=== PATIENT | female | born 1935 | race Caucasian/White ===

== ENCOUNTER → 2020-05-19 | Day surgery (SDC) | payer OTHER ==
[~2020-05-19] MED LIST: ATORVASTATIN CA10 MG PO; CALCIUM D3; LEVOTHYROXINE50 MCG PO; LIDOCAINE HCL 2% LOCAL INJ 5 ML SDV VIAL INJ ONE; METOPROLOL TART50 MG PO; MULTIVITAMINS1 EAC7; PROPOFOL IV EMULSION 10 MG/ML 20 ML VIAL ONE; TYLENOL325 M2
[2020-05-19 10:15] VITALS: BP 164/92
--- NOTE | 2020-05-19 11:42 | Operative Report ---
DATE OF PROCEDURE: SURGEON: Aiden Fuchs MD NAME OF THE PROCEDURE: Colonoscopy. PREPROCEDURE DIAGNOSIS: The patient with history of adenomatous colon polyps and history of rectal bleeding, rule out colorectal neoplasm and for any bowel disease, perineal disease. DESCRIPTION OF PROCEDURE: After informed written consent, premedications with monitored anesthesia care, the videocolonoscope was introduced into the rectum and into the terminal ileum. Just water and minimal amount of CO2 were used for insufflation. Majority of insufflation was just done with water using a PD colonoscope. The terminal ileum, cecum, the ileocecal valve, ascending colon, transverse colon were normal. Descending sigmoid showed scattered diverticulosis, more so in the sigmoid, the sigmoid colon 25-30 cm from the anal verge. There were two polyps removed by cold snare, one of them was managed with an Endoclip. Internal and external hemorrhoids were noted. External hemorrhoids are fairly large. IMPRESSION: Internal-external hemorrhoids, diverticulosis, colon polyp. RECOMMENDATIONS: Local treatment for the hemorrhoids. Call for the office appointment in 2-3 weeks and if the hemorrhoidal bleeding persists, she will need a surgical evaluation. Aiden Fuchs MD SR/MODL /[id number]
== END | disposition home or self-care (01) ==
LOC: OR 06:25
PROVIDERS: ATTEND Internal Medicine Gastroenterology
DX: K92.1 Melena (principal); K63.5 Polyp of colon; K59.00 Constipation, unspecified; Z71.3 Dietary counseling and surveillance; I10 Essential (primary) hypertension; E66.9 Obesity, unspecified; K64.8 Other hemorrhoids; K64.4 Residual hemorrhoidal skin tags; K57.30 Diverticulosis of large intestine without perforation or abscess without bleeding; E03.9 Hypothyroidism, unspecified; Z88.6 Allergy status to analgesic agent; Z88.1 Allergy status to other antibiotic agents; Z88.3 Allergy status to other anti-infective agents; Z01.810 Encounter for preprocedural cardiovascular examination; Z01.812 Encounter for preprocedural laboratory examination; Z11.59 Encounter for screening for other viral diseases; Z79.82 Long term (current) use of aspirin; Z68.31 Body mass index [BMI] 31.0-31.9, adult
CPT/HCPCS: 36415; 45385; 93005; J2001; J2704; U0002; 44391